=== PATIENT | male | born 1995 | race Caucasian/White ===

== ENCOUNTER 2016-09-19 05:48 | Emergency (ER) | payer OTHER ==
[2016-09-19 05:54] VITALS: TEMP 98.8
--- NOTE | 2016-09-19 06:03 | ED ---
URI HPI - General Chief Complaint: Upper Respiratory Infection Stated Complaint: Cough Time Seen by Provider: 09/19/16 05:55 Source: patient Mode of arrival: ambulatory Limitations: no limitations - History of Present Illness Initial Comments: 20 years old presented with the cough he been coughing off and on for last 2 weeks, his mom thinks that he had a cold for last 2 weeks he does bring up some phlegm. No fever no chills no headaches no neck stiffness no chest pain he does have ALLERGIES and he does take medication for ALLERGIES - Related Data Home Medications Medication Instructions Recorded Confirmed Loratadine [Claritin] 10 mg PO DAILY 11/11/13 09/27/15 lamoTRIgine [LaMICtal] 400 mg PO DAILY 11/11/13 09/27/15 Previous Rx's Medication Instructions Recorded Azithromycin [Zithromax Tri-Dveen] 500 mg PO DAILY #3 tab 09/19/16 Allergies Allergy/AdvReac Type Severity Reaction Status Date / Time aripiprazole [From Abilify] Allergy Unknown Verified 09/19/16 05:54 atomoxetine HCl Allergy Unknown Verified 09/19/16 05:54 [From Strattera] risperidone Allergy Unknown Verified 09/19/16 05:54 Review of Systems ROS Statement: Those systems with pertinent positive or pertinent negative responses have been documented in the HPI. ROS Other: All systems not noted in ROS Statement are negative. Past Medical History Past Medical History: Asthma Additional Past Medical History / Comment(s): Von Willebrand disease,Aspbergers disease History of Any Multi-Drug Resistant Organisms: None Reported Past Surgical History: Adenoidectomy Past Psychological History: ADD/ADHD, Bipolar Smoking Status: Never smoker Past Alcohol Use History: None Reported Past Drug Use History: None Reported General Exam - General Exam Comments Initial Comments: General: The patient is awake and alert, in no distress, and does not appear acutely ill. Skin: Skin is warm and dry and no rashes or lesions are noted. Eye: Pupils are equal, round and reactive to light, extra-ocular movements are intact; there is normal conjunctiva bilaterally. Ears, nose, mouth and throat: Exam is consistent with rhinitis Neck: The neck is supple, there is no tenderness or JVD. Cardiovascular: There is a regular rate and rhythm. No murmur, rub or gallop is appreciated. Respiratory: To auscultation bilateral, mild wheezing noticed bilaterally Gastrointestinal: Soft, non-distended, non-tender abdomen without masses or organomegaly noted. There is no rebound or guarding present. Bowel sounds are unremarkable. Back: There is no tenderness to palpation in the midline. There is no obvious deformity. Musculoskeletal: Normal ROM, no tenderness, There is no pedal edema. There is no calf tenderness or swelling. No cords were appreciated. Neurological: CN II-XII intact, Cranial nerves III through XII are intact. There are no obvious motor or sensory deficits. Coordination appears grossly intact. Speech is normal. Psychiatric: Cooperative, appropriate mood & affect, normal judgment. Limitations: no limitations Course Vital Signs 09/19/16 05:52 Temperature 98.8 F Pulse Rate 77 Respiratory 148 H Rate Blood Pressure 131/66 O2 Sat by Pulse 97 Oximetry Disposition Clinical Impression: Bronchitis Disposition: HOME SELF-CARE Condition: Good Instructions: Upper Respiratory Infection (ED) Prescriptions: Azithromycin [Zithromax Tri-Deven] 500 mg PO DAILY #3 tab Referrals: Michael Skinner MD [Primary Care Provider] - 1-2 days
--- NOTE | 2016-09-19 06:47 | XR ---
EXAMINATION TYPE: XR chest 2V DATE OF EXAM: 09/19/2016 HISTORY: Rule out pneumonia. REFERENCE: NONE. FINDINGS: The lungs are clear. Pleural spaces are clear. Heart size is normal. IMPRESSION: NO ACUTE INTRATHORACIC ABNORMALITY.
[2016-09-19 06:52] VITALS: BP 123/74; PULSE 70; RESP 16
== END 2016-09-19 06:56 | disposition home or self-care (01) ==
LOC: EC 05:48
DX: J40 Bronchitis, not specified as acute or chronic (principal); F31.9 Bipolar disorder, unspecified; Z88.8 Allergy status to other drugs, medicaments and biological substances; Z79.899 Other long term (current) drug therapy
CPT/HCPCS: 71020; 99283

== ENCOUNTER 2016-10-04 19:51 | Emergency (ER) | payer OTHER ==
[2016-10-04 19:56] VITALS: RESP 18
[2016-10-04] MEDS: IPRATROPIUM-ALBUTEROL 3 ML NEB INHALATION STA (20:49)
--- NOTE | 2016-10-04 21:10 | XR ---
EXAMINATION TYPE: XR chest 2V DATE OF EXAM: 10/04/2016 COMPARISON: 09/19/2016 HISTORY: Short of breath TECHNIQUE: Frontal and lateral views of the chest are obtained. FINDINGS: Heart and mediastinum are normal. Lungs are clear. Diaphragm is normal. Bony thorax is int act. IMPRESSION: Normal chest. No change.
--- NOTE | 2016-10-04 21:16 | ED ---
URI HPI - General Chief Complaint: Upper Respiratory Infection Stated Complaint: cough/chest pains Time Seen by Provider: 10/04/16 20:13 Source: patient Mode of arrival: ambulatory Limitations: no limitations - History of Present Illness Initial Comments: Patient is a 20-year-old male presenting to the emergency department with his mother with complaints of cough for approximately 3 weeks. Patient does have a history of seasonal ALLERGIES. Patient states he was treated with antibiotics approximately 2 weeks ago but the cough didn't go away. Patient complains of nasal congestion and posterior throat drainage especially when lying down. Patient states cough is worse after he has been lying down and wakes up. Patient denies chills, fevers, nausea, vomiting, or shortness of breath. Patient complains of chest discomfort from coughing. Patient denies urinary urgency, dysuria, hematuria. Patient denies diarrhea or constipation. - Related Data Home Medications Medication Instructions Recorded Confirmed Loratadine [Claritin] 10 mg PO DAILY 11/11/13 10/04/16 lamoTRIgine [LaMICtal] 200 mg PO DAILY 11/11/13 10/04/16 Lisdexamfetamine Dimesylate 60 mg PO DAILY 10/04/16 10/04/16 [Vyvanse] guaiFENesin [Mucinex] 600 mg PO DAILY PRN 10/04/16 10/04/16 Previous Rx's Medication Instructions Recorded Albuterol Inhaler [Ventolin Hfa 1 - 2 puff INHALATION Q6HR PRN #1 10/04/16 Inhaler] inhaler Benzonatate [Tessalon Perles] 100 mg PO TID PRN #21 capsule 10/04/16 Fluticasone Nasal [place] [Flonase 2 spr EA NOSTRIL DAILY #1 bottle 10/04/16 Nasal [place]] Allergies Allergy/AdvReac Type Severity Reaction Status Date / Time aripiprazole [From Abilify] Allergy Unknown Verified 10/04/16 20:04 atomoxetine HCl Allergy Unknown Verified 10/04/16 20:04 [From Strattera] risperidone Allergy Unknown Verified 10/04/16 20:04 Review of Systems ROS Statement: Those systems with pertinent positive or pertinent negative responses have been documented in the HPI. ROS Other: All systems not noted in ROS Statement are negative. Past Medical History Past Medical History: Asthma Additional Past Medical History / Comment(s): Von Willebrand disease,Aspbergers disease History of Any Multi-Drug Resistant Organisms: None Reported Past Surgical History: Adenoidectomy Past Psychological History: ADD/ADHD, Bipolar Smoking Status: Never smoker Past Alcohol Use History: None Reported Past Drug Use History: None Reported General Exam - General Exam Comments Initial Comments: GENERAL: Pt awake and alert, well-appearing, well-nourished, and in no acute distress. HEAD: Atraumatic, normocephalic. EYES: Pupils equal, round, and reactive to light, extraocular movements intact, sclera anicteric, conjunctiva are normal. ENT: Posterior slightly erythematous. Moist mucous membranes. NECK:Normal range of motion, supple without lymphadenopathy. LUNGS: Breath sounds clear to auscultation bilaterally. No wheezes, rales, or rhonchi. HEART: Heart S1, S2, no S3 or S4. Regular rate and rhythm. No murmurs, rubs or gallops. ABDOMEN: Soft, nontender, nondistended, normoactive bowel sounds. MUSCULOSKELETAL: Normal range of motion, no tenderness. Strength 5/5. EXTREMITIES: Palpable peripheral pulses. NEUROLOGICAL: Pt oriented x 3. No focal deficits noted. Strength and sensation grossly intact. PSYCH: Normal mood, normal affect. SKIN: Warm, dry, intact. Limitations: no limitations Course Vital Signs 10/04/16 10/04/16 10/04/16 19:53 20:07 20:52 Temperature 98.6 F Pulse Rate 85 73 Respiratory 18 18 Rate Blood Pressure 136/74 O2 Sat by Pulse 98 Oximetry 10/04/16 21:00 Temperature Pulse Rate 74 Respiratory Rate Blood Pressure O2 Sat by Pulse Oximetry Medical Decision Making - Medical Decision Making Upper respiratory infection suspect bronchitis and seasonal ALLERGIES. Patient instructed to continue Claritin, albuterol inhaler as needed, Flonase, and Tessalon Perles for cough. Patient agrees with treatment plan. Patient started to follow-up with primary care physician. Patient instructed to return to the emergency department with any new or worsening symptoms. - Radiology Data Radiology results: report reviewed Chest x-ray: Heart and mediastinum are normal. Lungs are clear. Diaphragm is normal. Bony thorax is intact. No acute monitoring manager process. As read by radiologist Dr. Rehman. Disposition Clinical Impression: Bronchitis Disposition: HOME SELF-CARE Condition: Good Instructions: Upper Respiratory Infection (ED) Additional Instructions: Continue Motrin and Tylenol for pain. Continue Flonase for nasal congestion. Continue Claritin for ALLERGIES. Continue albuterol inhaler 1-2 puffs every 6 hours for shortness of breath. Continue Tessalon Perles up to 3 times daily for persistent cough. Follow-up with primary care physician early next week. Please return to the emergency department if symptoms do not improve or get worse. Prescriptions: Albuterol Inhaler [Ventolin Hfa Inhaler] 1 - 2 puff INHALATION Q6HR PRN #1 inhaler PRN Reason: Shortness Of Breath Benzonatate [Tessalon Perles] 100 mg PO TID PRN #21 capsule PRN Reason: Cough Fluticasone Nasal [place] [Flonase Nasal [place]] 2 spr EA NOSTRIL DAILY #1 bottle Referrals: Michael Skinner MD [Primary Care Provider] - 1-2 days Time of Disposition: 21:19
[2016-10-04 21:43] VITALS: BP 129/69; PULSE 88; TEMP 98.1
== END 2016-10-04 21:43 | disposition home or self-care (01) ==
LOC: EC 19:51
DX: J40 Bronchitis, not specified as acute or chronic (principal); F31.9 Bipolar disorder, unspecified; F90.9 Attention-deficit hyperactivity disorder, unspecified type; Z79.899 Other long term (current) drug therapy; Z88.8 Allergy status to other drugs, medicaments and biological substances
CPT/HCPCS: 71020; 94640; 99283

== ENCOUNTER 2018-01-26 16:15 | Emergency (ER) | payer OTHER ==
[2018-01-26 16:57] VITALS: RESP 18; TEMP 98.2
--- NOTE | 2018-01-26 17:46 | ED ---
Abdominal Pain HPI - General Chief Complaint: Abdominal Pain Stated Complaint: Left side pain Time Seen by Provider: 01/26/18 17:12 Source: patient Mode of arrival: ambulatory Limitations: no limitations - History of Present Illness Initial Comments: Patient is a 22-year-old male presenting for left lower quadrant abdominal pain. The patient states that it started around 3 PM today feels a sharp sensation. Afebrile better with walking and it was intermittent without radiation. He denies any nausea/vomiting/diarrhea and states he's had a history of constipation for which she has been taking stool softeners. However , he recently discontinued because he was certain have diarrhea. - Related Data Home Medications Medication Instructions Recorded Confirmed lamoTRIgine [LaMICtal] 200 mg PO DAILY 11/11/13 01/26/18 Aminocaproic Acid [Amicar] 500 mg PO DIRECTED PRN 01/26/18 01/26/18 Allergies Allergy/AdvReac Type Severity Reaction Status Date / Time aripiprazole [From Abilify] Allergy Unknown Verified 01/26/18 17:40 atomoxetine HCl Allergy Unknown Verified 01/26/18 17:40 [From Strattera] risperidone Allergy Unknown Verified 01/26/18 17:40 Review of Systems ROS Statement: Those systems with pertinent positive or pertinent negative responses have been documented in the HPI. Constitutional: Negative for chills, fatigue and fever. HENT: Negative for congestion. Respiratory: Negative for chest tightness, shortness of breath and wheezing. Negative for cough Cardiovascular: Negative for chest pain and palpitations. Gastrointestinal: Positive for abdominal pain. Negative for abdominal distention , diarrhea, nausea and vomiting. Positive for constipation Genitourinary: Negative for dysuria. Musculoskeletal: Negative for back pain, neck pain and neck stiffness. Skin: Negative for color change. Neurological: Negative for dizziness, speech difficulty, weakness and light- headedness. Psychiatric/Behavioral: Negative for agitation and confusion. Negative for anxiety ROS Other: All systems not noted in ROS Statement are negative. Past Medical History Past Medical History: Asthma Additional Past Medical History / Comment(s): Von Willebrand disease,Aspbergers disease History of Any Multi-Drug Resistant Organisms: None Reported Past Surgical History: Adenoidectomy Past Psychological History: ADD/ADHD, Bipolar Smoking Status: Never smoker Past Alcohol Use History: None Reported Past Drug Use History: None Reported General Exam - General Exam Comments Initial Comments: Constitutional: Pt is oriented to person, place, and time. Pt appears well- developed and well-nourished. No distress. HENT: Head: Normocephalic and atraumatic. Eyes: EOM are normal. Neck: Normal range of motion. Neck supple. Cardiovascular: Normal rate, regular rhythm, S1 normal, S2 normal and normal heart sounds. Exam reveals no gallop and no friction rub. No murmur heard. Pulmonary/Chest: Effort normal and breath sounds normal. No tachypnea and no bradypnea. No respiratory distress. No wheezes or rales noted. Abdominal: Soft. Bowel sounds are normal. Pt exhibits no shifting dullness, no distension, no pulsatile liver, no fluid wave, no abdominal bruit and no ascites. There is no tenderness. There is no rigidity, no rebound, no guarding, no tenderness at McBurney's point and negative Kenny's sign. Musculoskeletal: Normal range of motion. Neurological: Pt is alert and oriented to person, place, and time. No cranial nerve deficit. Skin: Skin is warm and dry. No rash noted. Pt is not diaphoretic. No erythema. No pallor. Psychiatric: Pt has a normal mood and affect. Pt behavior is normal. Thought content normal. Limitations: no limitations Course Vital Signs 01/26/18 01/26/18 16:54 19:24 Temperature 98.2 F Pulse Rate 79 78 Respiratory 18 18 Rate Blood Pressure 118/79 145/79 O2 Sat by Pulse 100 99 Oximetry Medical Decision Making - Medical Decision Making Laboratory studies showed that there was mild leukocytosis of 12.2 but electrolytes were within normal limits and urinalysis was negative for infection. KUB was also performed and showed no evidence of emergent or abnormal findings. Because there was no tenderness whatsoever on repeat physical exams, it was explained that advanced imaging such as CT was not advisable as there was significant radiation with this current study. However, patient was advised to follow up with PCP next 1-2 days and explained that this may be secondary to constipation and advised to restart the stool softeners. Patient and mother were agreeable to plan. - Lab Data Result diagrams: 01/26/18 18:09 01/26/18 18:09 Lab Results 01/26/18 01/26/18 01/26/18 Range/Units 18:09 18:09 18:35 WBC 12.2 H (3.8-10.6) k/uL RBC 4.88 (4.30-5.90) m/uL Hgb 15.0 (13.0-17.5) gm/dL Hct 44.7 (39.0-53.0) % MCV 91.5 (80.0-100.0) fL MCH 30.7 (25.0-35.0) pg MCHC 33.5 (31.0-37.0) g/dL RDW 12.3 (11.5-15.5) % Plt Count 184 (150-450) k/uL Neutrophils % 72 % Lymphocytes % 17 % Monocytes % 4 % Eosinophils % 5 % Basophils % 0 % Neutrophils # 8.8 H (1.3-7.7) k/uL Lymphocytes # 2.1 (1.0-4.8) k/uL Monocytes # 0.5 (0-1.0) k/uL Eosinophils # 0.6 (0-0.7) k/uL Basophils # 0.0 (0-0.2) k/uL Sodium 140 (137-145) mmol/L Potassium 3.9 (3.5-5.1) mmol/L Chloride 104 (98-107) mmol/L Carbon Dioxide 26 (22-30) mmol/L Anion Gap 10 mmol/L BUN 7 L (9-20) mg/dL Creatinine 0.79 (0.66-1.25) mg/dL Est GFR (CKD-EPI)AfAm >90 (>60 ml/min/1.73 sqM) Est GFR (CKD-EPI)NonAf >90 (>60 ml/min/1.73 sqM) Glucose 92 (74-99) mg/dL Calcium 9.4 (8.4-10.2) mg/dL Total Bilirubin 0.6 (0.2-1.3) mg/dL AST 36 (17-59) U/L ALT 66 (21-72) U/L Alkaline Phosphatase 105 (38-126) U/L Total Protein 7.6 (6.3-8.2) g/dL Albumin 4.4 (3.5-5.0) g/dL Urine Color Yellow Urine Appearance Clear (Clear) Urine pH 5.5 (5.0-8.0) Ur Specific [place] 1.019 (1.001-1.035) Urine Protein Negative (Negative) Urine Glucose (UA) Negative (Negative) Urine Ketones Negative (Negative) Urine Blood Negative (Negative) Urine Nitrite Negative (Negative) Urine Bilirubin Negative (Negative) Urine Urobilinogen <2.0 (<2.0) mg/dL Ur Leukocyte Esterase Trace H (Negative) Urine RBC <1 (0-5) /hpf Urine WBC 2 (0-5) /hpf Ur Squamous Epith Cells <1 (0-4) /hpf Urine Mucus Moderate H (None) /hpf Disposition Clinical Impression: Left lower quadrant abdominal pain of unknown etiology Disposition: HOME SELF-CARE Condition: Good Instructions: Abdominal Pain (ED) Is patient prescribed a controlled substance at d/c from ED?: No Referrals: Karl Burger MD [Primary Care Provider] - 1-2 days Time of Disposition: 19:23
[2018-01-26 18:29] LABS: Basophils % (A) 0 %; Eosinophils # (A) 0.6 k/uL (0-0.7); Eosinophils % (A) 5 %; HCT 44.7 % (39.0-53.0); Lymphocytes # (A) 2.1 k/uL (1.0-4.8); Lymphocytes % (A) 17 %; MCH 30.7 pg (25.0-35.0); MCHC 33.5 g/dL (31.0-37.0); MCV 91.5 fL (80.0-100.0); Monocytes # (A) 0.5 k/uL (0-1.0); Monocytes % (A) 4 %; Neutrophils # (A) 8.8 k/uL (1.3-7.7); Neutrophils % (A) 72 %; Platelet Count 184 k/uL (150-450); RBC 4.88 m/uL (4.30-5.90); RDW 12.3 % (11.5-15.5); WBC 12.2 k/uL (3.8-10.6)
[2018-01-26 18:40] LABS: ALT 66 U/L (21-72); AST 36 U/L (17-59); Albumin 4.4 g/dL (3.5-5.0); Alkaline Phosphatase 105 U/L (38-126); Anion Gap 10 mmol/L; Blood Urea Nitrogen 7 mg/dL (9-20); Calcium 9.4 mg/dL (8.4-10.2); Carbon Dioxide 26 mmol/L (22-30); Chloride 104 mmol/L (98-107); Glucose 92 mg/dL (74-99); Potassium 3.9 mmol/L (3.5-5.1); Sodium 140 mmol/L (137-145); Total Bilirubin 0.6 mg/dL (0.2-1.3); Total Protein 7.6 g/dL (6.3-8.2)
--- NOTE | 2018-01-26 18:49 | XR ---
EXAMINATION TYPE: XR KUB DATE OF EXAM: 01/26/2018 COMPARISON: 05/21/2010 HISTORY: Pain TECHNIQUE: 2 views upright FINDINGS: Bowel gas pattern is normal. There is no sign of intestinal obstruction or pneumoperitoneum . Fecal pattern is normal. There are no pathologic calcifications. IMPRESSION: Nonacute abdomen. No change.
[2018-01-26 18:53] LABS: Appearance,Urine Clear (Clear); Bilirubin,Urine Negative (Negative); Blood,Urine Negative (Negative); Color,Urine Yellow; Glucose,Urine (UA) Negative (Negative); Ketones,Urine Negative (Negative); Leukocyte Esterase,Urine Trace (Negative); Mucus,Urine Moderate /hpf; Nitrite,Urine Negative (Negative); PH, Urine 5.5 (5.0-8.0); Protein,Urine Negative (Negative); RBC,Urine <1 /hpf (0-5); Specific Gravity,Urine 1.019 (1.001-1.035); Squamous Epithelial Cell,Urine <1 /hpf (0-4); Urobilinogen,Urine <2.0 mg/dL (<2.0); WBC,Urine 2 /hpf (0-5)
[2018-01-26 19:25] VITALS: BP 145/79; PULSE 78
== END 2018-01-26 19:40 | disposition home or self-care (01) ==
LOC: EC 16:15 → EEVIPCON 16:15 → EC 19:40
DX: R10.32 Left lower quadrant pain (principal); D72.829 Elevated white blood cell count, unspecified; R19.7 Diarrhea, unspecified; F31.9 Bipolar disorder, unspecified; Z88.8 Allergy status to other drugs, medicaments and biological substances; Z79.899 Other long term (current) drug therapy
CPT/HCPCS: 36415; 74018; 80053; 81001; 85025; 99284

== ENCOUNTER 2018-02-24 20:30 | Emergency (ER) | payer OTHER ==
--- NOTE | 2018-02-24 21:08 | ED ---
Chest Pain HPI - General Chief Complaint: Chest Pain Stated Complaint: chest pain Time Seen by Provider: 02/24/18 21:07 Source: patient Mode of arrival: ambulatory Limitations: no limitations - History of Present Illness Initial Comments: Sreedhar is a 22-year-old male with past medical history of Asperger's who presents to the emergency department with multiple vague complaints. Patient reports this he's had worsening dental pain for a couple of weeks duration and has noticed over the past few days that his gums appear red and swollen on the left upper gums. Patient has contacted a dentist but does not have follow-up established yet. Patient admits he has not seen a dentist since he was 12 years old due to his problems with close personal interactions due to his Asperger's. However he has been seeing a therapist does feel that he'll be able to cope with a dentist appointment this time. Patient also states that intermittently over the past couple days he has had a sharp stabbing pain located between his third and fourth rib on the right. Pain occurs randomly, lasts for seconds and resolves. He does have some tenderness to palpation in the region. He denies any injury or heavy lifting. He denies any associated dyspnea, diaphoresis. He denies any exertional chest pain. He does not have a history of any early cardiac disease in the family. He is a nonsmoker. - Related Data Home Medications Medication Instructions Recorded Confirmed lamoTRIgine [LaMICtal] 200 mg PO DAILY 11/11/13 01/26/18 Aminocaproic Acid [Amicar] 500 mg PO DIRECTED PRN 01/26/18 01/26/18 Previous Rx's Medication Instructions Recorded Penicillin V Potassium [Pen Vee K] 500 mg PO Q6HR 7 Days #28 tablet 02/24/18 Allergies Allergy/AdvReac Type Severity Reaction Status Date / Time aripiprazole [From Abilify] Allergy Unknown Verified 02/24/18 20:53 atomoxetine HCl Allergy Unknown Verified 02/24/18 20:53 [From Strattera] risperidone Allergy Unknown Verified 02/24/18 20:53 Review of Systems ROS Statement: Those systems with pertinent positive or pertinent negative responses have been documented in the HPI. ROS Other: All systems not noted in ROS Statement are negative. EKG Findings - EKG Comments: EKG Findings:: EKG obtained at 9:07 PM, rate is 86, rhythm is sinus, there is a normal axis, normal intervals, DE 156, QRS 86, QTC 440. There are no acute ST elevations or depressions there is no evidence of acute ischemia or infarction. Past Medical History Past Medical History: Asthma Additional Past Medical History / Comment(s): Von Willebrand disease,Aspbergers disease History of Any Multi-Drug Resistant Organisms: None Reported Past Surgical History: Adenoidectomy Past Psychological History: ADD/ADHD, Bipolar Smoking Status: Never smoker Past Alcohol Use History: None Reported Past Drug Use History: None Reported General Exam - General Exam Comments Initial Comments: Physical Exam GENERAL: Patient is well-developed and well-nourished. Patient is nontoxic and well- hydrated and is in no distress. HENT: Normocephalic, Atraumatic. EYES: PERRL, EOMI PULMONARY: Unlabored respirations. No audible rales rhonchi or wheezing was noted. CARDIOVASCULAR: There is a regular rate and rhythm without any murmurs gallops or rubs. Mild tenderness to palpation of the right ribs at the costochondral junction ABDOMEN: Soft and nontender with normal bowel sounds. SKIN: Skin is clear with no lesions or rashes and otherwise unremarkable. : Deferred NEUROLOGIC: Patient is alert and oriented x3. Moving all extremities spontaneously MUSCULOSKELETAL: Normal extremities with adequate strength and full range of motion. No lower extremity swelling or edema. No calf tenderness. PSYCHIATRIC: Normal psychiatric evaluation. Limitations: no limitations Limitations: no limitations Course Vital Signs 02/24/18 02/24/18 02/24/18 20:50 21:39 23:22 Temperature 98.3 F 98.5 F Pulse Rate 91 85 87 Respiratory 18 20 18 Rate Blood Pressure 143/81 120/56 132/66 O2 Sat by Pulse 99 100 98 Oximetry Chest Pain MDM - MDM The patient was seen and evaluated history was obtained from patient as well as his mother Patient presenting with 2 distinct complaints, apparent dental infection and vague intermittent right-sided chest wall pain EKG was nonischemic Chest x-ray unremarkable Physical exam does reveal some dental infection without signs of abscess I do feel the patient would benefit from from antibiotic therapy as this will expedite dental intervention patient mother agreeable. Patient will be discharged home with oral penicillin. Return parameters were discussed patient was discharged home in stable condition. Disposition Clinical Impression: Musculoskeletal chest pain, Dental infection Disposition: HOME SELF-CARE Condition: Good Instructions: Costochondritis (ED) Prescriptions: Penicillin V Potassium [Pen Vee K] 500 mg PO Q6HR 7 Days #28 tablet Is patient prescribed a controlled substance at d/c from ED?: No Referrals: aKrl Burger MD [Primary Care Provider] - 1-2 days
--- NOTE | 2018-02-24 21:42 | XR ---
EXAMINATION TYPE: XR chest 2V DATE OF EXAM: 02/24/2018 COMPARISON: Prior chest x-ray dated 10/04/2016 HISTORY: Chest pain TECHNIQUE: Frontal and lateral views of the chest are obtained. FINDINGS: There is no focal air space opacity, pleural effusion, or pneumothorax seen. The cardiac silhouette size is within normal limits. The osseous structures are intact. IMPRESSION: No acute cardiopulmonary process.
[2018-02-24] MEDS ORDERED: PENICILLIN VK 500MG STARTER 4 TAB BTL PO STA (22:59)
[2018-02-24 23:23] VITALS: BP 132/66; PULSE 87; RESP 18; TEMP 98.5
== END 2018-02-24 23:23 | disposition home or self-care (01) ==
LOC: EC 20:30
DX: K04.7 Periapical abscess without sinus (principal); R07.81 Pleurodynia; F84.5 Asperger's syndrome; F31.9 Bipolar disorder, unspecified; Z88.8 Allergy status to other drugs, medicaments and biological substances; Z79.899 Other long term (current) drug therapy
CPT/HCPCS: 71046; 93005; 99283

== ENCOUNTER 2018-12-16 18:09 | Emergency (ER) | payer OTHER ==
[2018-12-16] MEDS ORDERED: AZITHROMYCIN 500 MG TAB PO STA (19:10)
[2018-12-16] MEDS ORDERED: BENZONATATE 100 MG CAP PO STA (19:10)
[2018-12-16] MEDS ORDERED: DEXAMETHASONE 4 MG TAB PO STA (19:10)
[2018-12-16] MEDS ORDERED: IPRATROPIUM-ALBUTEROL 3 ML NEB INHALATION STA (19:10)
--- NOTE | 2018-12-16 19:13 | ED ---
SOB HPI - General Chief Complaint: Shortness of Breath Stated Complaint: Chest pain, fever Time Seen by Provider: 12/16/18 19:00 Source: patient, RN notes reviewed, old records reviewed Mode of arrival: ambulatory Limitations: no limitations - History of Present Illness Initial Comments: This is a 23-year-old male the ER for evaluation presents today for evaluation regards to cough persistent cough and congestion. Patient also admits occasional shortness of breath nonsmoker. History of similar complaints in the past. Patient is also some developmental delay, does have caregiver. Patient presents today for evaluation regarding this cough. He also missed a fever, symptoms over 3 days. Patient has no medications or prior evaluation of symptom s. No chest pain. No recent travel history no sick contacts. Cough is nonproductive MD Complaint: shortness of breath, cough -: days(s) (3) Severity: mild Severity scale (1-10): 2 Quality: aching Consistency: intermittent Improves With: rest Worsens With: exertion Context: recent URI Associated Symptoms: cough Treatments Prior to Arrival: none - Related Data Home Medications Medication Instructions Recorded Confirmed lamoTRIgine [LaMICtal] 200 mg PO DAILY 11/11/13 12/16/18 Aminocaproic Acid [Amicar] 500 mg PO DIRECTED PRN 01/26/18 12/16/18 Allergies Allergy/AdvReac Type Severity Reaction Status Date / Time aripiprazole [From Abilify] Allergy Unknown Verified 12/16/18 19:29 atomoxetine HCl Allergy Unknown Verified 12/16/18 19:29 [From Strattera] risperidone Allergy Unknown Verified 12/16/18 19:29 Review of Systems ROS Statement: Those systems with pertinent positive or pertinent negative responses have been documented in the HPI. ROS Other: All systems not noted in ROS Statement are negative. Past Medical History Past Medical History: Asthma Additional Past Medical History / Comment(s): Von Willebrand disease,Aspbergers disease History of Any Multi-Drug Resistant Organisms: None Reported Past Surgical History: Adenoidectomy Past Psychological History: ADD/ADHD, Bipolar Smoking Status: Never smoker Past Alcohol Use History: None Reported Past Drug Use History: None Reported General Exam Limitations: no limitations General appearance: alert, in no apparent distress Head exam: Present: atraumatic, normocephalic, normal inspection Eye exam: Present: normal appearance, PERRL, EOMI. Absent: scleral icterus, conjunctival injection, periorbital swelling ENT exam: Present: normal exam, mucous membranes moist Neck exam: Present: normal inspection. Absent: tenderness, meningismus, lymphadenopathy Respiratory exam: Present: normal lung sounds bilaterally. Absent: respiratory distress, wheezes, rales, rhonchi, stridor Cardiovascular Exam: Present: regular rate, normal rhythm, normal heart sounds. Absent: systolic murmur, diastolic murmur, rubs, gallop, clicks GI/Abdominal exam: Present: soft, normal bowel sounds. Absent: distended, tenderness, guarding, rebound, rigid Extremities exam: Present: normal inspection, full ROM, normal capillary refill. Absent: tenderness, pedal edema, joint swelling, calf tenderness Back exam: Present: normal inspection Neurological exam: Present: alert, oriented X3, CN II-XII intact Psychiatric exam: Present: normal affect, normal mood Skin exam: Present: warm, dry, intact, normal color. Absent: rash Course Vital Signs 12/16/18 12/16/18 12/16/18 18:24 19:28 19:36 Temperature 99.7 F H Pulse Rate 94 89 Respiratory 18 16 20 Rate Blood Pressure 121/82 O2 Sat by Pulse 98 Oximetry - Reevaluation(s) Reevaluation #1: 12/16/18 19:11 Medical record is reviewed Reevaluation #2: 12/16/18 20:11 Patient symptoms are significantly improved Medical Decision Making - Medical Decision Making 21 male the ER for evaluation. Patient does say for eversion cough congestion URI. Patient has bronchitis no known and x-ray. Patient can be discharged home no distress - Radiology Data Radiology results: report reviewed (Chest x-rays positive for community acquired pneumonia), image reviewed Disposition Clinical Impression: Acute bronchitis, Community acquired pneumonia Disposition: HOME SELF-CARE Condition: Good Instructions (If sedation given, give patient instructions): Acute Bronchitis (ED), Community Acquired Pneumonia (ED) Is patient prescribed a controlled substance at d/c from ED?: No Referrals: Karl Burger MD [Primary Care Provider] - 1-2 days
--- NOTE | 2018-12-16 20:24 | XR ---
EXAMINATION: XR chest 2V DATE AND TIME: 12/16/2018 7:15 PM CLINICAL INDICATION: Fever and dyspnea, and cough and pain TECHNIQUE: Departmental protocol COMPARISON: Radiographs 02/24/2018 FINDINGS: In the left lower lung zone there are ill-defined added opacities, which appear to project within the left lower lobe. These were not seen on the prior study. The lungs are otherwise well-expanded and c lear. The pleural spaces are negative. The cardiac silhouette is not enlarged. The remainder of the mediastinal silhouette is unremarkable. The skeletal structures and soft tissues are negative for acute findings. IMPRESSION: Left lower lobe bronchopneumonia pattern; would advise 9-week follow-up PA and lateral chest radiogra ph to prove resolution.
[2018-12-16] MEDS ORDERED: cefTRIAXone 1,000 MG VIAL (IM USE) IM STA (20:46)
[2018-12-16 21:04] VITALS: BP 124/87; PULSE 97; RESP 18; TEMP 98
== END 2018-12-16 21:04 | disposition home or self-care (01) ==
LOC: EC 18:09
DX: J20.9 Acute bronchitis, unspecified (principal); J18.8 Other pneumonia, unspecified organism; J06.9 Acute upper respiratory infection, unspecified; R62.50 Unspecified lack of expected normal physiological development in childhood; F31.9 Bipolar disorder, unspecified; F84.5 Asperger's syndrome; D68.0 Von Willebrand disease; Z88.8 Allergy status to other drugs, medicaments and biological substances; Z79.899 Other long term (current) drug therapy; Z90.89 Acquired absence of other organs
CPT/HCPCS: 94640; 71046; 99285; 96372; J8540; J0696

== ENCOUNTER 2020-03-04 18:20 | Emergency (ER) | payer OTHER ==
[2020-03-04] MEDS ORDERED: ACETAMINOPHEN TAB 500 MG TAB PO STA (19:27)
[2020-03-04] MEDS ORDERED: IBUPROFEN 600 MG TAB PO STA (19:27)
--- NOTE | 2020-03-04 19:54 | XR ---
EXAMINATION TYPE: XR chest 2V DATE OF EXAM: 03/04/2020 COMPARISON: 12/16/2018. HISTORY: Cough and fever. TECHNIQUE: Frontal and lateral views of the chest are obtained. FINDINGS: There is no focal air space opacity, pleural effusion, or pneumothorax seen. The cardiac silhouette size is within normal limits. The osseous structures are intact. IMPRESSION: No acute cardiopulmonary process.
[2020-03-04 20:15] LABS: Basophils % (A) 0 %; Eosinophils # (A) 0.1 k/uL (0-0.7); Eosinophils % (A) 1 %; HCT 43.7 % (39.0-53.0); HGB 15.6 gm/dL (13.0-17.5); Lymphocytes # (A) 0.3 k/uL (1.0-4.8); Lymphocytes % (A) 3 %; MCH 31.2 pg (25.0-35.0); MCHC 35.6 g/dL (31.0-37.0); MCV 87.6 fL (80.0-100.0); Mean Platelet Volume 7.6; Monocytes # (A) 0.4 k/uL (0-1.0); Monocytes % (A) 4 %; Neutrophils % (A) 91 %; Platelet Count 110 k/uL (150-450); RBC 4.99 m/uL (4.30-5.90); RDW 11.9 % (11.5-15.5); WBC 9.9 k/uL (3.8-10.6)
[2020-03-04 20:32] LABS: ALT 66 U/L (4-49); AST 53 U/L (17-59); African American GFR (CKD) >90 (>60 ml/min/1.73 sqM); Albumin 4.6 g/dL (3.5-5.0); Alkaline Phosphatase 96 U/L (38-126); Anion Gap 9 mmol/L; Blood Urea Nitrogen 13 mg/dL (9-20); Carbon Dioxide 27 mmol/L (22-30); Chloride 99 mmol/L (98-107); Glucose 125 mg/dL (74-99); Non-African American GFR(CKD) >90 (>60 ml/min/1.73 sqM); Potassium 3.6 mmol/L (3.5-5.1); Sodium 135 mmol/L (137-145); Total Protein 7.9 g/dL (6.3-8.2)
[2020-03-04 22:07] VITALS: BP 120/72
[2020-03-04 22:09] VITALS: RESP 21
--- NOTE | 2020-03-04 22:27 | ED ---
General Adult HPI - General Chief complaint: Nausea/Vomiting/Diarrhea Stated complaint: puking/fever/headache Time Seen by Provider: 03/04/20 19:08 Source: patient, RN notes reviewed, old records reviewed Mode of arrival: ambulatory Limitations: no limitations - History of Present Illness Initial comments: 24-year-old male patient to ED for fever nausea dry cough last 3 days. Denies any abdominal pain. There have of nausea and vomiting. Denies any other complaints. Systemic: Pt denies fatigue, rash. Pt denies weakness, night sweats, weight loss. Neuro: Pt denies headache, visual disturbances, syncope or pre-syncope. HEENT: Pt denies ocular discharge or irritation, otalgia, rhinorrhea, pharyngitis or notable lymphadenopathy. Cardiopulmonary: Pt denies chest pain, SOB, heart palpitations, dyspnea on exertion. Abdominal/GI: Pt denies abdominal pain. : Pt denies dysuria, burning w/ urination, frequency/urgency. Denies new onset urinary or bowel incontinence. MSK: Pt denies myalgia, loss of strength or function in extremities. Neuro: Pt denies new onset weakness, paresthesias. - Related Data Home Medications Medication Instructions Recorded Confirmed lamoTRIgine [LaMICtal] 200 mg PO DAILY 11/11/13 03/04/20 Acetaminophen [Tylenol] 500 mg PO Q4-6H PRN 03/04/20 03/04/20 Allergies Allergy/AdvReac Type Severity Reaction Status Date / Time aripiprazole [From Abilify] Allergy Unknown Verified 03/04/20 22:27 atomoxetine HCl Allergy Unknown Verified 03/04/20 22:27 [From Strattera] risperidone Allergy Unknown Verified 03/04/20 22:27 Review of Systems ROS Statement: Those systems with pertinent positive or pertinent negative responses have been documented in the HPI. ROS Other: All systems not noted in ROS Statement are negative. Past Medical History Past Medical History: Asthma Additional Past Medical History / Comment(s): Von Willebrand disease,Aspbergers disease History of Any Multi-Drug Resistant Organisms: None Reported Past Surgical History: Adenoidectomy Past Psychological History: ADD/ADHD, Bipolar Smoking Status: Never smoker Past Alcohol Use History: None Reported Past Drug Use History: None Reported General Exam - General Exam Comments Initial Comments: Constitutional: NAD, AOX3, Pt has pleasant affect. HEENT: NC/AT, trachea midline, neck supple, no lymphadenopathy. Posterior pharynx non erythematous, without exudates. External ears appear normal, without discharge. Mucous membranes moist. Eyes PERRLA, EOM intact. There is no scleral icterus. No pallor noted. Cardiopulmonary: RRR, no murmurs, rubs or gallops, no JVD noted. Lungs CTAB in anterior and posterior garza. No peripheral edema. Abdominal exam: Abdomen soft and non-distended. Abdomen non-tender to palpation in all 4 quadrants. Bowel sounds active in LLQ. No hepatosplenomegaly. No ecchymosis Neuro: CN II-XII intact. No nuchal rigidity. No raccon eyes, no ramesh sign, no hemotympanum. No cervical spinal tenderness. MSK: No posterior calf tenderness bilaterally, homans sign negative bilaterally. Posterior tibialis and radial pulse +2 bilaterally. Sensation intact in upper and lower extremities. Full active ROM in upper and lower extremities, 5/5 stregnth. Limitations: no limitations Course Vital Signs 03/04/20 03/04/20 03/04/20 18:48 21:10 22:00 Temperature 104.2 F H 102.7 F H Pulse Rate 138 H 124 H Respiratory 20 18 21 Rate Blood Pressure 127/64 120/72 O2 Sat by Pulse 95 95 Oximetry 03/04/20 22:30 Temperature Pulse Rate 92 Respiratory Rate Blood Pressure O2 Sat by Pulse Oximetry Medical Decision Making - Medical Decision Making 23-year-old male patient to ED for fever or dry cough nausea vomiting. Vital signs are likely fever patient administered antipyretic. Physical exam negative for acute pathology. Laboratory investigations are unremarkable. Chest x-ray negative for acute process. Fever is well-controlled. Patient is feeling much improved. High suspicion for coronavirus. Patient will be discharged with outpatient follow-up and return precautions. Case discussed with Dr. Agosto. - Lab Data Result diagrams: 03/04/20 19:59 03/04/20 19:59 Lab Results 03/04/20 03/04/20 03/04/20 Range/Units 19:59 19:59 19:59 WBC 9.9 (3.8-10.6) k/uL RBC 4.99 (4.30-5.90) m/uL Hgb 15.6 (13.0-17.5) gm/dL Hct 43.7 (39.0-53.0) % MCV 87.6 (80.0-100.0) fL MCH 31.2 (25.0-35.0) pg MCHC 35.6 (31.0-37.0) g/dL RDW 11.9 (11.5-15.5) % Plt Count 110 L (150-450) k/uL MPV 7.6 Neutrophils % 91 % Lymphocytes % 3 % Monocytes % 4 % Eosinophils % 1 % Basophils % 0 % Neutrophils # 9.0 H (1.3-7.7) k/uL Lymphocytes # 0.3 L (1.0-4.8) k/uL Monocytes # 0.4 (0-1.0) k/uL Eosinophils # 0.1 (0-0.7) k/uL Basophils # 0.0 (0-0.2) k/uL Sodium 135 L (137-145) mmol/L Potassium 3.6 (3.5-5.1) mmol/L Chloride 99 (98-107) mmol/L Carbon Dioxide 27 (22-30) mmol/L Anion Gap 9 mmol/L BUN 13 (9-20) mg/dL Creatinine 1.14 (0.66-1.25) mg/dL Est GFR (CKD-EPI)AfAm >90 (>60 ml/min/1.73 sqM) Est GFR (CKD-EPI)NonAf >90 (>60 ml/min/1.73 sqM) Glucose 125 H (74-99) mg/dL Plasma Lactic Acid Neri 1.1 (0.7-2.0) mmol/L Calcium 9.0 (8.4-10.2) mg/dL Total Bilirubin 1.0 (0.2-1.3) mg/dL AST 53 (17-59) U/L ALT 66 H (4-49) U/L Alkaline Phosphatase 96 (38-126) U/L Total Protein 7.9 (6.3-8.2) g/dL Albumin 4.6 (3.5-5.0) g/dL Influenza Type A RNA (Not Detectd) Influenza Type B (PCR) (Not Detectd) 03/04/20 Range/Units 22:15 WBC (3.8-10.6) k/uL RBC (4.30-5.90) m/uL Hgb (13.0-17.5) gm/dL Hct (39.0-53.0) % MCV (80.0-100.0) fL MCH (25.0-35.0) pg MCHC (31.0-37.0) g/dL RDW (11.5-15.5) % Plt Count (150-450) k/uL MPV Neutrophils % % Lymphocytes % % Monocytes % % Eosinophils % % Basophils % % Neutrophils # (1.3-7.7) k/uL Lymphocytes # (1.0-4.8) k/uL Monocytes # (0-1.0) k/uL Eosinophils # (0-0.7) k/uL Basophils # (0-0.2) k/uL Sodium (137-145) mmol/L Potassium (3.5-5.1) mmol/L Chloride (98-107) mmol/L Carbon Dioxide (22-30) mmol/L Anion Gap mmol/L BUN (9-20) mg/dL Creatinine (0.66-1.25) mg/dL Est GFR (CKD-EPI)AfAm (>60 ml/min/1.73 sqM) Est GFR (CKD-EPI)NonAf (>60 ml/min/1.73 sqM) Glucose (74-99) mg/dL Plasma Lactic Acid Neri (0.7-2.0) mmol/L Calcium (8.4-10.2) mg/dL Total Bilirubin (0.2-1.3) mg/dL AST (17-59) U/L ALT (4-49) U/L Alkaline Phosphatase (38-126) U/L Total Protein (6.3-8.2) g/dL Albumin (3.5-5.0) g/dL Influenza Type A RNA Not Detected (Not Detectd) Influenza Type B (PCR) Not Detected (Not Detectd) Disposition Clinical Impression: Fever Disposition: HOME SELF-CARE Condition: Stable Instructions (If sedation given, give patient instructions): Fever in Adults (ED) Additional Instructions: Follow up with PCP tomorrow. Use tylenol as needed for fever. Drink lots of fluids. Return to ED with any worsening symptoms. Self quarentine until results from COVID test. Is patient prescribed a controlled substance at d/c from ED?: No Referrals: Karl Burger MD [Primary Care Provider] - 1-2 days
[2020-03-04 22:59] VITALS: PULSE 92
[2020-03-04 23:28] VITALS: TEMP 100.6
== END 2020-03-04 22:32 | disposition home or self-care (01) ==
LOC: EC 18:20
DX: R50.9 Fever, unspecified (principal); R05 Cough; R11.2 Nausea with vomiting, unspecified; F90.9 Attention-deficit hyperactivity disorder, unspecified type; F31.9 Bipolar disorder, unspecified; Z79.899 Other long term (current) drug therapy; Z88.8 Allergy status to other drugs, medicaments and biological substances; Z20.828 Contact with and (suspected) exposure to other viral communicable diseases
CPT/HCPCS: 36415; 80053; 83605; 85025; 87040; 87502; 71046; 99284; U0003

== ENCOUNTER 2020-03-18 21:51 | Emergency (ER) | payer OTHER ==
[2020-03-18 22:05] VITALS: RESP 18; TEMP 98.4
[2020-03-18] MEDS ORDERED: IBUPROFEN 800 MG TAB PO STA (22:55)
[2020-03-18] MEDS ORDERED: ACETAMINOPHEN TAB 500 MG TAB PO STA (22:55)
--- NOTE | 2020-03-18 23:11 | XR ---
EXAMINATION TYPE: XR hand complete RT DATE OF EXAM: 03/18/2020 COMPARISON: 01/03/2015 HISTORY: Pain TECHNIQUE: 3 views FINDINGS: There is an acute transverse fracture of the neck of the fifth metacarpal head. There is no dislocation. There is slight posterior angulation. Joint spaces appear normal. IMPRESSION: Acute boxer fracture of the distal fifth metacarpal.
--- NOTE | 2020-03-18 23:34 | ED ---
Upper Extremity HPI - General Chief Complaint: Extremity Injury, Upper Stated Complaint: Right hand injury / Time Seen by Provider: 03/18/20 22:23 Source: patient Mode of arrival: ambulatory Limitations: no limitations - History of Present Illness Initial Comments: This is a 24-year-old male who is right hand and did punch a wall coming in for right hand pain. No other to medic injury noted patient became angry when he did this but is [facility] [place]. Not homicidal or suicidal. Patient denies again any other complaints no drugs or alcohol MD Complaint: Injury to:: right, hand -: hour(s) Other Extremity Injury: Hand: Right Handedness: right Place: home Severity scale (1-10): 8 Improves With: none Worsens With: none Context: direct blow (punch) Associated Symptoms: denies other symptoms - Related Data Home Medications Medication Instructions Recorded Confirmed lamoTRIgine [LaMICtal] 200 mg PO DAILY 11/11/13 03/18/20 Acetaminophen [Tylenol] 500 mg PO Q4-6H PRN 03/04/20 03/18/20 Amoxicillin 500 mg PO BID 03/18/20 03/18/20 Allergies Allergy/AdvReac Type Severity Reaction Status Date / Time aripiprazole [From Abilify] Allergy Unknown Verified 03/18/20 23:38 atomoxetine HCl Allergy Unknown Verified 03/18/20 23:38 [From Strattera] risperidone Allergy Unknown Verified 03/18/20 23:38 Review of Systems ROS Statement: Those systems with pertinent positive or pertinent negative responses have been documented in the HPI. ROS Other: All systems not noted in ROS Statement are negative. Past Medical History Past Medical History: Asthma Additional Past Medical History / Comment(s): Von Willebrand disease,Aspbergers disease History of Any Multi-Drug Resistant Organisms: None Reported Past Surgical History: Adenoidectomy Past Psychological History: ADD/ADHD, Bipolar Smoking Status: Current every day smoker Past Alcohol Use History: None Reported Past Drug Use History: None Reported General Exam - General Exam Comments Initial Comments: right hand 5th metacarpal tenderness Limitations: no limitations General appearance: alert, in no apparent distress Head exam: Present: atraumatic, normocephalic, normal inspection Eye exam: Present: normal appearance, PERRL, EOMI. Absent: scleral icterus, conjunctival injection, periorbital swelling ENT exam: Present: normal exam, mucous membranes moist Neck exam: Present: normal inspection. Absent: tenderness, meningismus, lymphadenopathy Respiratory exam: Present: normal lung sounds bilaterally. Absent: respiratory distress, wheezes, rales, rhonchi, stridor Cardiovascular Exam: Present: regular rate, normal rhythm, normal heart sounds. Absent: systolic murmur, diastolic murmur, rubs, gallop, clicks GI/Abdominal exam: Present: soft, normal bowel sounds. Absent: distended, tenderness, guarding, rebound, rigid Extremities exam: Present: normal inspection, full ROM, normal capillary refill. Absent: tenderness, pedal edema, joint swelling, calf tenderness Back exam: Present: normal inspection Neurological exam: Present: alert, oriented X3, CN II-XII intact Psychiatric exam: Present: normal affect, normal mood Skin exam: Present: warm, dry, intact, normal color. Absent: rash Course Vital Signs 03/18/20 03/18/20 22:01 23:46 Temperature 98.4 F Pulse Rate 110 H 92 Respiratory 18 18 Rate Blood Pressure 125/82 129/80 O2 Sat by Pulse 98 98 Oximetry - Reevaluation(s) Reevaluation #1: Medical record is reviewed Patient has a significant improvement if not resolution of symptoms Patient informed results and questions have been answered patient is okay for discharge home Medical Decision Making - Medical Decision Making 21 female with right boxer's break, right hand fracture, patient can be discharged home - Radiology Data Radiology results: report reviewed (X-ray right hand is positive for boxer's fracture), image reviewed Disposition Clinical Impression: Right hand fracture, Boxers fracture Disposition: HOME SELF-CARE Condition: Good Instructions (If sedation given, give patient instructions): Boxer Fracture (ED) Is patient prescribed a controlled substance at d/c from ED?: No Referrals: Diallo Gonzalez DO [Doctor of Osteopathic Medicine] - 1-2 days
[2020-03-18 23:47] VITALS: BP 129/80; PULSE 92
== END 2020-03-18 23:50 | disposition home or self-care (01) ==
LOC: EC 21:51
DX: S62.366A Nondisplaced fracture of neck of fifth metacarpal bone, right hand, initial encounter for closed fracture (principal); F17.200 Nicotine dependence, unspecified, uncomplicated; F31.9 Bipolar disorder, unspecified; F90.9 Attention-deficit hyperactivity disorder, unspecified type; Z88.8 Allergy status to other drugs, medicaments and biological substances; Z79.899 Other long term (current) drug therapy; W22.8XXA Striking against or struck by other objects, initial encounter; Y93.89 Activity, other specified
CPT/HCPCS: 99284

== ENCOUNTER → 2020-12-27 | Outpatient (CLI) | payer OTHER ==
[2020-12-27 22:40] LABS: Basophils # (A) 0.02 X 10*3/uL (0.00-0.10); Basophils % (A) 0.2 %; Eosinophils # (A) 0.22 X 10*3/uL (0.04-0.35); Eosinophils % (A) 2.2 %; HCT 40.7 % (39.6-50.0); HGB 13.5 g/dL (13.0-17.0); Lymphocytes # (A) 2.28 X 10*3/uL (0.90-5.00); Lymphocytes % (A) 22.7 %; MCH 29.7 pg (27.0-32.0); MCHC 33.2 g/dL (32.0-37.0); MCV 89.5 fL (80.0-97.0); Mean Platelet Volume 11.1 fL (9.5-12.2); Monocytes # (A) 0.71 X 10*3/uL (0.20-1.00); Monocytes % (A) 7.1 %; Neutrophils % (A) 67.5 %; Platelet Count 173 X 10*3/uL (140-440); RBC 4.55 X 10*6/uL (4.40-5.60); RDW 12.5 % (11.5-14.5); WBC 10.06 X 10*3/uL (4.50-10.00)
[2020-12-28 01:28] LABS: Hemoglobin A1C 5.1 % (4.0-6.0)
[2020-12-28 19:27] LABS: African American GFR (CKD) 121.6 (60.0-200.0); Albumin 4.6 g/dL (3.80-4.90); Albumin/Globulin Ratio 1.84 (1.60-3.17); Anion Gap 11.7 mmol/L (4.00-12.00); Calcium 8.9 mg/dL (8.7-10.3); Carbon Dioxide 24.3 mmol/L (21.6-31.8); Chol/HDL Ratio 3.03; Globulin 2.5 g/dL (1.6-3.3); LDL Cholesterol,Calculated 56.4 mg/dL (0.0-131.0); Non-African American GFR(CKD) 104.9 (60.0-200.0); Potassium 3.9 mmol/L (3.5-5.5); Total Bilirubin 0.5 mg/dL (0.3-1.2); Total Protein 7.1 g/dL (6.2-8.2); VLDL Calculation 16.6 mg/dL (5.00-40.00)
[2020-12-28 19:35] LABS: T4, Free (Free Thyroxine) 1.3 ng/dL (0.80-1.80)
[2020-12-28 20:17] LABS: Folate, Serum 19.3 ng/mL
== END | disposition home or self-care (01) ==
LOC: LABWHC1 15:29
PROVIDERS: ATTEND Nurse Practitioner Psychiatric/Mental Health
DX: F84.0 Autistic disorder (principal); Z79.899 Other long term (current) drug therapy
CPT/HCPCS: 36415; 80053; 80061; 82306; 82607; 82746; 83036; 84439; 84443; 85025; 93005

== ENCOUNTER 2022-01-19 23:33 | Emergency (ER) | payer OTHER ==
[2022-01-19 23:38] VITALS: BP 122/84; PULSE 82; RESP 18; TEMP 99.1
[2022-01-19] MEDS ORDERED: MORPHINE SULFATE 4 MG/ML SYRINGE IM STA (23:53)
[2022-01-19] MEDS ORDERED: ACET/COD 300 MG/30 MG STARTER PACK 6 TAB BTL PO STA (23:53)
[2022-01-19] MEDS ORDERED: KETOROLAC 15 MG/ML 1 ML VIAL IM STA (23:55)
--- NOTE | 2022-01-19 23:55 | ED ---
General Adult HPI - General Chief complaint: Back Pain/Injury Stated complaint: Lower Back Pain Time Seen by Provider: 01/19/22 23:38 Source: patient Mode of arrival: wheelchair Limitations: no limitations - History of Present Illness Initial comments: Dictation was produced using [employer] dictation software. please excuse any grammatical, word or spelling errors. Chief Complaint: 26-year-old male presents to the emergency department for atraumatic back pain History of Present Illness: Patient 26-year-old male he is here in emergency department for back pain. Patient states that his daily routine is exercises with lifting tires. This morning he was doing his exercises. He was bending over to lift up one of these tires when all of a sudden he felt sharp pain in his back. Patient waited until tonight to come to the emergency room. Denies any numbness, paresthesias to the legs. No saddle anesthesia. Patient able to ambulate however standing exacerbates his pain. The ROS documented in this emergency department record has been reviewed and confirmed by me. Those systems with pertinent positive or negative responses have been documented in the HPI. All other systems are other negative and/or noncontributory. PHYSICAL EXAM: General Impression: Alert and oriented x3, not in acute distress HEENT: Normocephalic atraumatic, extra-ocular movements intact, pupils equal and reactive to light bilaterally, mucous membranes moist. Cardiovascular: Heart regular rate and rhythm Chest: Able to complete full sentences, no retractions, no tachypnea Abdomen: abdomen soft, non-tender, non-distended, no organomegaly Musculoskeletal: Pulses present and equal in all extremities, no peripheral edema Motor: no focal deficits noted Neurological: CN II-XII grossly intact, no focal motor or sensory deficits noted Skin: Intact with no visualized rashes Psych: Normal affect and mood ED course: 26-year-old male presents to the emergency department for atraumatic back pain. Vital signs upon arrival are within acceptable limits. Patient given IM morphine and started pack for Tylenol No. 3. Patient counseled on back exercises and they immediately recover processes from a back strain. Advised follow-up with primary care doctor. - Related Data Home Medications Medication Instructions Recorded Confirmed lamoTRIgine [LaMICtal] 200 mg PO DAILY 11/11/13 03/18/20 Acetaminophen [Tylenol] 500 mg PO Q4-6H PRN 03/04/20 03/18/20 Amoxicillin 500 mg PO BID 03/18/20 03/18/20 Allergies Allergy/AdvReac Type Severity Reaction Status Date / Time aripiprazole [From Abilify] Allergy Unknown Verified 01/19/22 23:38 atomoxetine HCl Allergy Unknown Verified 01/19/22 23:38 [From Strattera] risperidone Allergy Unknown Verified 01/19/22 23:38 Review of Systems ROS Statement: Those systems with pertinent positive or pertinent negative responses have been documented in the HPI. ROS Other: All systems not noted in ROS Statement are negative. Past Medical History Past Medical History: Asthma Additional Past Medical History / Comment(s): Von Willebrand disease,Aspbergers disease History of Any Multi-Drug Resistant Organisms: None Reported Past Surgical History: Adenoidectomy Past Psychological History: ADD/ADHD, Bipolar Smoking Status: Current every day smoker Past Alcohol Use History: None Reported Past Drug Use History: None Reported General Exam Limitations: no limitations Course Vital Signs 01/19/22 23:35 Temperature 99.1 F Pulse Rate 82 Respiratory 18 Rate Blood Pressure 122/84 O2 Sat by Pulse 96 Oximetry Disposition Clinical Impression: Back strain Disposition: HOME SELF-CARE Condition: Good Instructions (If sedation given, give patient instructions): Acute Low Back Pain (ED) Is patient prescribed a controlled substance at d/c from ED?: No Referrals: Karl Burger MD [Primary Care Provider] - 1-2 days Time of Disposition: 23:55
[2022-01-19] MEDS ORDERED: IBUPROFEN 600 MG STARTER PACK 4 TAB BTL PO STA (23:56)
== END 2022-01-20 00:13 | disposition home or self-care (01) ==
LOC: EC 23:33
DX: S39.012A Strain of muscle, fascia and tendon of lower back, initial encounter (principal); J45.909 Unspecified asthma, uncomplicated; Z88.0 Allergy status to penicillin; Z88.9 Allergy status to unspecified drugs, medicaments and biological substances; Z88.8 Allergy status to other drugs, medicaments and biological substances; X58.XXXA Exposure to other specified factors, initial encounter
CPT/HCPCS: 99283; 96372; J1885

== ENCOUNTER → 2024-06-10 | Outpatient (CLI) | payer OTHER ==
--- NOTE | 2024-06-11 07:52 | MR ---
EXAMINATION TYPE: MR cspine/lspine wo/w con DATE OF EXAM: 06/10/2024 COMPARISON: NONE HISTORY: neck and low back pain, stabbing sensation, numbness in legs. TECHNIQUE: Multiplanar, multisequence images of the cervical and lumbar spine are performed without and with IV contrast, utilizing 10 mL intravenous Gadobutrol FINDINGS: C-SPINE: MRI CERVICAL SPINE: Sagittal images of the cervical spine show the craniocervical junction to appear within normal limits . The cervical and upper thoracic spinal cord is normal in course, caliber, and signal. Vertebral a lignment is anatomic. The vertebral body and intravertebral disk heights are normal. The bone marro w signal intensity is within normal limits. No abnormal postcontrast enhancement is seen. Axial images show C2-C3 through C4-C5 levels to appear within normal limits. Axial images at C5-C6 level showed broad based posterior disc protrusion effacing anterior thecal sac and causing mild bilateral neural foraminal narrowing. Axial images at C6-C7 and C7-T1 levels appear within normal limits. IMPRESSION: Focal degenerative change C5-C6 level is noted. L-SPINE: Sagittal images of the lumbar spine show vertebral body heights and alignment to appear satisfactory. There is disc desiccation at L3-L4 and L4-L5 levels. Posterior annular tears are present. There is m ild disc space narrowing at L4-L5 level. The conus medullaris is normal in position and signal in th e mid L1 level. There is dural ectasia in the sacrum causing posterior scalloping particularly in the mid cervical spine sagittal image 11. The bone marrow signal intensity is within normal limits. No a bnormal postcontrast enhancement is seen. Axial images show T12-L1 through L2-L3 levels to appear within normal limits. Axial images at L3-L4 level show mild broad disc bulge with left paracentral disc protrusion componen t and annular tear effacing the anterior thecal sac. Bilateral Neural foramina are patent. Mild facet arthropathy bilaterally is seen. Axial images at L4-L5 level shows central disc protrusion and annular tear effaces anterior thecal sa c and mild facet arthropathy bilaterally. Bilateral neural foramina are patent. Axial images at L5-S1 level show mild facet arthropathy bilaterally. IMPRESSION: Multilevel degenerative change in the mid to lower lumbar spine as detailed above. More i mportant note is made of prominent dural ectasia in the sacrum causing significant posterior scallopi ng or erosive bone loss. [facility], , 06/11/2024 7:50 AM
== END | disposition home or self-care (01) ==
LOC: RADMRIMAIN 17:38
PROVIDERS: ATTEND Family Medicine
DX: M51.360 Other intervertebral disc degeneration, lumbar region with discogenic back pain only (principal); M51.26 Other intervertebral disc displacement, lumbar region; M85.80 Other specified disorders of bone density and structure, unspecified site; M47.817 Spondylosis without myelopathy or radiculopathy, lumbosacral region; M47.812 Spondylosis without myelopathy or radiculopathy, cervical region
CPT/HCPCS: 72156; 72158; A9585

== ENCOUNTER 2024-07-30 16:57 | Emergency (ER) | payer OTHER ==
[2024-07-30 17:15] VITALS: TEMP 98.6
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
--- NOTE | 2024-07-30 17:33 | XR ---
EXAMINATION TYPE: XR hand complete LT DATE OF EXAM: 07/30/2024 5:26 PM COMPARISON: None. CLINICAL INDICATION: Male, 28 years old with history of Injury; PHH, pain TECHNIQUE: XR hand complete LT Frontal, lateral and oblique views were obtained. FINDINGS: Comminuted obliquely oriented fracture of the fourth digit middle phalanx with extension in to the DIP joint and volar distraction of the distal fracture component. This fourth digit soft tissu e swelling/edema. Carpal alignment appears grossly maintained. No definite additional acute fracture or dislocation. No expected radiographic or body. IMPRESSION: Comminuted oblique oriented mildly displaced fracture of the fourth digit middle phalanx with extensi on into the DIP joint. [facility], , 07/30/2024 5:31 PM
[2024-07-30 17:59] VITALS: BP 127/68; PULSE 91; RESP 18
== END 2024-07-30 17:55 | disposition home or self-care (01) ==
LOC: EC 16:57
DX: S62.605A Fracture of unspecified phalanx of left ring finger, initial encounter for closed fracture (principal); S00.31XA Abrasion of nose, initial encounter; F17.290 Nicotine dependence, other tobacco product, uncomplicated; Z88.8 Allergy status to other drugs, medicaments and biological substances; Y04.0XXA Assault by unarmed brawl or fight, initial encounter
CPT/HCPCS: 99283

== ENCOUNTER 2024-08-10 02:20 | Emergency (ER) | payer OTHER ==
[2024-08-10 02:23] VITALS: RESP 16; TEMP 97.9
[2024-08-10 03:07] LABS: Appearance,Urine Clear (Clear); Bilirubin,Urine Negative (Negative); Blood,Urine Negative (Negative); Color,Urine Light Yellow; Glucose,Urine (UA) Negative (Negative); Ketones,Urine Negative (Negative); Leukocyte Esterase,Urine Negative (Negative); Nitrite,Urine Negative (Negative); PH, Urine 5.5 (5.0-8.0); Protein,Urine Negative (Negative); Specific Gravity,Urine 1.012 (1.001-1.035); Urobilinogen,Urine <2.0 mg/dL (<2.0)
--- NOTE | 2024-08-10 03:24 | ED ---
Male Urogenital HPI - General Chief complaint: Urogenital Stated complaint: Right testicle pain Time Seen by Provider: 08/10/24 02:38 Source: patient Mode of arrival: ambulatory Limitations: no limitations - History of Present Illness Initial comments: This patient is a 28-year-old man who presents to have evaluation of right testicular pain. The patient states that he had rolled while he was lying down and in the process believes that he had pulled something in his groin. He has had intermittent right-sided testicular and right sided groin pain since that time, usually worse with movement. Patient has not noted fever or chills. No change in urination or bowel movements though he states he does frequently have constipation. MD Complaint: testicle pain Onset/Timin -: days(s) Location: right testicle Radiation: none Severity: moderate Quality: aching Consistency: intermittent Improves with: none Worsens with: movement Reports: denies other symptoms - Related Data Home Medications Medication Instructions Recorded Confirmed lamoTRIgine [LaMICtal] 200 mg PO DAILY 11/11/13 03/18/20 Acetaminophen [Tylenol] 500 mg PO Q4-6H PRN 03/04/20 03/18/20 Amoxicillin 500 mg PO BID 03/18/20 03/18/20 Previous Rx's Medication Instructions Recorded Cyclobenzaprine [Flexeril] 5 mg PO TID #15 tablet 08/10/24 Allergies Allergy/AdvReac Type Severity Reaction Status Date / Time aripiprazole [From Abilify] Allergy Unknown Verified 08/10/24 02:23 atomoxetine HCl Allergy Unknown Verified 08/10/24 02:23 [From Strattera] risperidone Allergy Unknown Verified 08/10/24 02:23 Review of Systems ROS Statement: Those systems with pertinent positive or pertinent negative responses have been documented in the HPI. ROS Other: All systems not noted in ROS Statement are negative. Constitutional: Denies: fever, chills, weakness Respiratory: Denies: cough, dyspnea Cardiovascular: Denies: chest pain, palpitations, edema Gastrointestinal: Reports: as per HPI, constipation. Denies: abdominal pain, nausea, vomiting, diarrhea Genitourinary: Reports: testicular pain. Denies: dysuria, frequency, hematuria, discharge, testicular mass Musculoskeletal: Denies: back pain Skin: Denies: rash Neurological: Denies: headache, weakness Past Medical History Past Medical History: Asthma Additional Past Medical History / Comment(s): Von Willebrand disease,Aspbergers disease History of Any Multi-Drug Resistant Organisms: None Reported Past Surgical History: Adenoidectomy Past Psychological History: ADD/ADHD, Bipolar Smoking Status: Current every day smoker, Former smoker Past Alcohol Use History: None Reported Past Drug Use History: None Reported General Exam Limitations: no limitations General appearance: alert, in no apparent distress Head exam: Present: atraumatic, normocephalic Eye exam: Present: normal appearance. Absent: scleral icterus, conjunctival injection ENT exam: Present: normal oropharynx Neck exam: Present: normal inspection Respiratory exam: Present: normal lung sounds bilaterally. Absent: respiratory distress, wheezes, rales, rhonchi, stridor, accessory muscle use Cardiovascular Exam: Present: regular rate, normal rhythm, normal heart sounds. Absent: systolic murmur, diastolic murmur, rubs, gallop GI/Abdominal exam: Present: soft. Absent: distended, tenderness, guarding, rebound, rigid, mass, pulsatile mass, hernia exam: Present: normal inspection, vertical testicular lie, circumcision. Absent: testicular tenderness, urethral discharge, scrotal swelling External exam: Present: normal external exam Extremities exam: Present: normal inspection, normal capillary refill. Absent: pedal edema, calf tenderness Back exam: Present: normal inspection. Absent: CVA tenderness (R), CVA tenderness (L) Neurological exam: Present: alert Skin exam: Present: warm, dry, intact, normal color. Absent: rash Course Vital Signs 08/10/24 08/10/24 02:21 03:49 Temperature 97.9 F 97.9 F Pulse Rate 74 67 Respiratory 16 16 Rate Blood Pressure 145/92 144/81 O2 Sat by Pulse 98 99 Oximetry Medical Decision Making - Medical Decision Making Was pt. sent in by a medical professional or institution (, PA, SENIOR GIS ANALYST, urgent care, hospital, or [facility]...) When possible be specific @ -[No] Did you speak to anyone other than the patient for history (EMS, parent, family, police, friend...)? What history was obtained from this source @ -[No] Did you review nursing and triage notes (agree or disagree)? Why? @ -[I reviewed and agree with nursing and triage notes] Were old charts reviewed (outside hosp., previous admission, EMS record, old EKG, old radiological studies, urgent care reports/EKG's, [facility] records)? Report findings @ -[No old charts were reviewed] Differential Diagnosis (chest pain, altered mental status, abdominal pain women, abdominal pain men, vaginal bleeding, weakness, fever, dyspnea, syncope, headache, dizziness, GI bleed, back pain, seizure, CVA, palpatations, mental health, musculoskeletal)? @ -[Differential Musculoskeletal Muscular strain, contusion, ligament sprain, fracture, arthritis, septic arthritis, bursitis, cellulitis, muscle spasm, nerve compression, DVT, arterial occlusion, herpes zoster, electrolyte abnormality, tumor.... This is not meant to be in all inclusive list EKG interpreted by me (3pts min.). @ -[As above] X-rays interpreted by me (1pt min.). @ -[None done] CT interpreted by me (1pt min.). @ -[None done] U/S interpreted by me (1pt. min.). @ -[Ultrasound of the scrotum was considered but the patient's tenderness is located at the groin muscle. Discussed with the patient that he must return should the symptoms involve the testicle itself, should any new symptoms develop or if he is worse in any way What testing was considered but not performed or refused? (CT, X-rays, U/S, labs)? Why? @ -[None] What meds were considered but not given or refused? Why? @ -[None] Did you discuss the management of the patient with other professionals (professionals i.e. , PA, SENIOR GIS ANALYST, lab, RT, psych nurse, social work program coordinator, supervisor pleating, teacher, operations officer afloat, bilingual patient support caseworker)? Give summary @ -[No] Was smoking cessation discussed for >3mins.? @ -[No] Was critical care preformed (if so, how long)? @ -[No] Were there social determinants of health that impacted care today? How? (Homelessness, low income, unemployed, alcoholism, drug addiction, transportation, low edu. Level, literacy, decrease access to med. care, [facility], rehab)? @ -[No] Was there de-escalation of care discussed even if they declined (Discuss DNR or withdrawal of care, Hospice)? DNR status @ -[No] What co-morbidities impacted this encounter? (DM, HTN, Smoking, COPD, CAD, Cancer, CVA, ARF, Chemo, Hep., AIDS, mental health diagnosis, sleep apnea, morbid obesity)? @ -[None] Was patient admitted / discharged? Hospital course, mention meds given and route, prescriptions, significant lab abnormalities, going to OR and other pertinent info. @ -[See the above Undiagnosed new problem with uncertain prognosis? @ -[No] Drug Therapy requiring intensive monitoring for toxicity (Heparin, Nitro, Insulin, Cardizem)? @ -[No] Were any procedures done? @ -[No] Diagnosis/symptom? @ -[Acute groin strain Acute, or Chronic, or Acute on Chronic? @ -[Acute Uncomplicated (without systemic symptoms) or Complicated (systemic symptoms)? @ -[Uncomplicated Side effects of treatment? @ -[No] Exacerbation, Progression, or Severe Exacerbation? @ -[No] Poses a threat to life or bodily function? How? (Chest pain, [place], [place], pneumonia, PE, COPD, DKA, ARF, appy, cholecystitis, CVA, Diverticulitis, Homicidal, Suicidal, threat to staff... and all critical care pts) @ -[No] All treatments are based on ideal body weight as in ED triage - Lab Data Lab Results 08/10/24 Range/Units 02:59 Urine Color Light Yellow Urine Appearance Clear (Clear) Urine pH 5.5 (5.0-8.0) Ur Specific [place] 1.012 (1.001-1.035) Urine Protein Negative (Negative) Urine Glucose (UA) Negative (Negative) Urine Ketones Negative (Negative) Urine Blood Negative (Negative) Urine Nitrite Negative (Negative) Urine Bilirubin Negative (Negative) Urine Urobilinogen <2.0 (<2.0) mg/dL Ur Leukocyte Esterase Negative (Negative) Disposition Clinical Impression: Strain of right groin Disposition: HOME SELF-CARE Condition: Good Instructions (If sedation given, give patient instructions): Groin Strain (ED) Prescriptions: Cyclobenzaprine [Flexeril] 5 mg PO TID #15 tablet Is patient prescribed a controlled substance at d/c from ED?: No Referrals: Garth Samuels MD [Primary Care Provider] - 1-2 days
[2024-08-10 03:52] VITALS: BP 144/81; PULSE 67
== END 2024-08-10 03:49 | disposition home or self-care (01) ==
LOC: EC 02:20
DX: S39.011A Strain of muscle, fascia and tendon of abdomen, initial encounter (principal); F17.290 Nicotine dependence, other tobacco product, uncomplicated; Z88.8 Allergy status to other drugs, medicaments and biological substances; X50.1XXA Overexertion from prolonged static or awkward postures, initial encounter; Y93.84 Activity, sleeping
CPT/HCPCS: 81003; 99283

== ENCOUNTER 2024-10-10 02:00 | Emergency (ER) | payer OTHER ==
--- NOTE | 2024-10-10 02:18 | ED ---
General Adult HPI - General Chief complaint: Shortness of Breath Stated complaint: Chest burning Time Seen by Provider: 10/10/24 02:11 Source: patient, family, RN notes reviewed Mode of arrival: ambulatory Limitations: no limitations - History of Present Illness Initial comments: This is a 28-year-old male with history including asthma and von Willebrand's disease presenting with mother for asthma exacerbation x 3 days. Patient endorses coughing up thick phlegm and minimal relief with albuterol inhaler. Denies fever, chills, fatigue, pleuritic chest pain, hemoptysis, abdominal pain, N/V/D. Onset/Timin -: days(s) - Related Data Home Medications Medication Instructions Recorded Confirmed lamoTRIgine [LaMICtal] 200 mg PO DAILY 11/11/13 03/18/20 Acetaminophen [Tylenol] 500 mg PO Q4-6H PRN 03/04/20 03/18/20 Amoxicillin 500 mg PO BID 03/18/20 03/18/20 Previous Rx's Medication Instructions Recorded Cyclobenzaprine [Flexeril] 5 mg PO TID #15 tablet 08/10/24 Albuterol Inhaler [Ventolin Hfa 1 - 2 puff INHALATION Q6H PRN #1 10/10/24 Inhaler] each Azithromycin [Zithromax Z Pack] 0 tab PO DIRECTED #4 tab 10/10/24 Allergies Allergy/AdvReac Type Severity Reaction Status Date / Time aripiprazole [From Abilify] Allergy Unknown Verified 10/10/24 02:03 atomoxetine HCl Allergy Unknown Verified 10/10/24 02:03 [From Strattera] risperidone Allergy Unknown Verified 10/10/24 02:03 Review of Systems ROS Statement: Those systems with pertinent positive or pertinent negative responses have been documented in the HPI. ROS Other: All systems not noted in ROS Statement are negative. Past Medical History Past Medical History: Asthma Additional Past Medical History / Comment(s): Von Willebrand disease,Aspbergers disease History of Any Multi-Drug Resistant Organisms: None Reported Past Surgical History: Adenoidectomy Past Psychological History: ADD/ADHD, Bipolar Smoking Status: Former smoker Past Alcohol Use History: None Reported Past Drug Use History: None Reported General Exam Limitations: no limitations General appearance: alert, in no apparent distress Head exam: Present: atraumatic, normocephalic, normal inspection Eye exam: Present: normal appearance, PERRL, EOMI. Absent: scleral icterus, conjunctival injection, periorbital swelling ENT exam: Present: normal exam, mucous membranes moist Neck exam: Present: normal inspection. Absent: tenderness, meningismus, lymphadenopathy Respiratory exam: Present: wheezes (Minor wheezing auscultated in all garza). Absent: respiratory distress, rales, rhonchi, stridor, accessory muscle use, decreased breath sounds, prolonged expiratory Cardiovascular Exam: Present: regular rate, normal rhythm, normal heart sounds. Absent: systolic murmur, diastolic murmur, rubs, gallop, clicks GI/Abdominal exam: Present: soft, normal bowel sounds. Absent: distended, tenderness, guarding, rebound, rigid Extremities exam: Present: normal inspection, full ROM, normal capillary refill. Absent: tenderness, pedal edema, joint swelling, calf tenderness Back exam: Present: normal inspection Neurological exam: Present: alert, oriented X3, CN II-XII intact Psychiatric exam: Present: normal affect, normal mood Skin exam: Present: warm, dry, intact, normal color. Absent: rash Course Vital Signs 10/10/24 10/10/24 10/10/24 02:00 02:29 02:40 Temperature 98.1 F Pulse Rate 82 80 80 Respiratory 18 Rate Blood Pressure 115/76 O2 Sat by Pulse 96 Oximetry Medical Decision Making - Medical Decision Making Was pt. sent in by a medical professional or institution (MANUEL Hsu, GLUING MACHINE ADJUSTER, urgent care, hospital, or [facility]p...) When possible be specific @ -[No] Did you speak to anyone other than the patient for history (EMS, parent, family, police, friend...)? What history was obtained from this source @ -Mother provided portion of HPI Did you review nursing and triage notes (agree or disagree)? Why? @ -[I reviewed and agree with nursing and triage notes] Were old charts reviewed (outside hosp., previous admission, EMS record, old EKG , old radiological studies, urgent care reports/EKG's, [facility] records)? Report findings @ -[No old charts were reviewed] Differential Diagnosis (chest pain, altered mental status, abdominal pain women, abdominal pain men, vaginal bleeding, weakness, fever, dyspnea, syncope, headache, dizziness, GI bleed, back pain, seizure, CVA, palpatations, mental health, musculoskeletal)? @ -Differential Dyspnea: Coronary syndrome, arrhythmia, tamponade, asthma, COPD, pulmonary embolism, pneumonia, pneumothorax, pulmonary effusion, anaphylaxis, diabetic ketoacidosis, flailed chest, pulmonary contusion, diaphragmatic rupture, anemia, neuromuscular, this is not meant to be an all-inclusive list. EKG interpreted by me (3pts min.). @ -Not done X-rays interpreted by me (1pt min.). @ -[None done] CT interpreted by me (1pt min.). @ -[None done] U/S interpreted by me (1pt. min.). @ -[None done] What testing was considered but not performed or refused? (CT, X-rays, U/S, labs)? Why? @ -[None] What meds were considered but not given or refused? Why? @ -[None] Did you discuss the management of the patient with other professionals (professionals i.e. , PA, GLUING MACHINE ADJUSTER, lab, RT, psych nurse, social media director, quarry plug and feather driller, teacher, bank officer, caser in)? Give summary @ -[No] Was smoking cessation discussed for >3mins.? @ -[No] Was critical care preformed (if so, how long)? @ -[No] Were there social determinants of health that impacted care today? How? (Homelessness, low income, unemployed, alcoholism, drug addiction, transportation, low edu. Level, literacy, decrease access to med. care, shelter, rehab)? @ -[No] Was there de-escalation of care discussed even if they declined (Discuss DNR or withdrawal of care, Hospice)? DNR status @ -[No] What co-morbidities impacted this encounter? (DM, HTN, Smoking, COPD, CAD, Cancer, CVA, ARF, Chemo, Hep., AIDS, mental health diagnosis, sleep apnea, morbid obesity)? @ -[None] Was patient admitted / discharged? Hospital course, mention meds given and route, prescriptions, significant lab abnormalities, going to OR and other pertinent info. @ -[hospital course] Undiagnosed new problem with uncertain prognosis? @ -[No] Drug Therapy requiring intensive monitoring for toxicity (Heparin, Nitro, Insulin, Cardizem)? @ -[No] Were any procedures done? @ -[No] Diagnosis/symptom? @ -Asthma exacerbation Acute, or Chronic, or Acute on Chronic? @ -Acute Uncomplicated (without systemic symptoms) or Complicated (systemic symptoms)? @ -Uncomplicated Side effects of treatment? @ -[No] Exacerbation, Progression, or Severe Exacerbation? @ -[No] Poses a threat to life or bodily function? How? (Chest pain, [place], [place], pneumonia, PE, COPD, DKA, ARF, appy, cholecystitis, CVA, Diverticulitis, Homicidal, Suicidal, threat to staff... and all critical care pts) @ -[No] Disposition Clinical Impression: Asthma with acute exacerbation, Tracheobronchitis Disposition: HOME SELF-CARE Condition: Good Instructions (If sedation given, give patient instructions): Asthma (ED), Acute Bronchitis (ED) Additional Instructions: Follow-up with primary care regarding any ongoing symptoms. Return to ER if experiencing worsening fever, chills, fatigue, blood in the sputum, difficulty breathing. Prescriptions: Albuterol Inhaler [Ventolin Hfa Inhaler] 1 - 2 puff INHALATION Q6H PRN #1 each PRN Reason: Shortness Of Breath Azithromycin [Zithromax Z Pack] 0 tab PO DIRECTED #4 tab Is patient prescribed a controlled substance at d/c from ED?: No Referrals: Garth Samuels MD [Primary Care Provider] - 1-2 days Time of Disposition: 03:23
[2024-10-10] MEDS: DEXAMETHASONE SOD PHOSPHATE 4 MG/ML 1 ML VIAL IM STA (02:21)
[2024-10-10] MEDS: IPRATROPIUM-ALBUTEROL 3 ML NEB INHALATION STA (02:28)
[2024-10-10] MEDS: AZITHROMYCIN 500 MG TAB PO STA (03:27)
[2024-10-10 03:30] VITALS: BP 130/93; PULSE 71; RESP 16; TEMP 97.9
[2024-10-10 03:36] LABS: Influenza A Not Detected (Not Detectd); Influenza B Not Detected (Not Detectd); RSV Not Detected (Not Detectd)
--- NOTE | 2024-10-10 04:13 | XR ---
EXAM: XR Chest, 2 Views CLINICAL HISTORY: Productive cough TECHNIQUE: Frontal and lateral views of the chest. COMPARISON: 03/04/2020 FINDINGS: Lungs: Unremarkable. No consolidation. Pleural space: Unremarkable. Mediastinum: Unremarkable. Normal mediastinal contour. Bones/joints: No acute findings. IMPRESSION: No acute findings.
== END 2024-10-10 03:44 | disposition home or self-care (01) ==
LOC: EC 02:00
DX: J45.901 Unspecified asthma with (acute) exacerbation (principal); Z87.891 Personal history of nicotine dependence; Z88.8 Allergy status to other drugs, medicaments and biological substances
CPT/HCPCS: 94640; 87636; 71046; 99285; 96372; J1100